=== PATIENT | male | born 1955 | race Caucasian/White ===

== ENCOUNTER 2018-11-23 21:18 | Emergency (ER) | payer BC, OTHER ==
[~2018-11-23] VITALS: Ht 172.7 cm; Wt 95.0 kg
--- OUTSIDE RECORDS SUMMARY | 2018-11-23 21:21 | XMS REPORT | Summary of Care ---
Author Author [facility] Outpatient Imaging [facility] Outpatient [facility] [place] Address Unknown Phone Unavailable Encounter HQ Encntr_alias(FIN) [id number] Date(s): 11/15/15 - 11/15/15 [facility] Outpatient Imaging [address] [address]- [phone] Discharge Disposition: Home Attending Physician: Ashlee Youngblood DC Vital Signs No data available for this section Problem List No data available for this section Allergies, Adverse Reactions, Alerts Substance Reaction Severity Status Demerol Active Medications No data available for this section Results No data available for this section Immunizations No data available for this section Procedures No data available for this section Social History Social History Type Response Smoking Status Never smoker; Exposure to Tobacco Smoke None; Cigarette Smoking Last 365 Days No; Reg Smoking Cessation Counseling No Assessment and Plan No data available for this section
--- OUTSIDE RECORDS SUMMARY | 2018-11-23 21:21 | XMS REPORT | CCD ---
Author Author Auto Generated Organization [facility] Address Unknown Phone Unavailable Care Team Providers Care Silver Recovery Operator Name Role Phone William Donahue RP Allergies, Adverse Reactions, Alerts Substance Reaction Status Demerol Active
--- OUTSIDE RECORDS SUMMARY | 2018-11-23 21:21 | XMS REPORT | Continuity of Care Document ---
Author Author [facility] Address Unknown Phone Unavailable Problems Problem Status Onset Date Classification Date Reported Comments Source Discharge Diagnosis: Sciatica, right side 11/15/2015 11/18/2015 [facility] Discharge Diagnosis: Other intervertebral disc degeneration, lumbar region 11/15/2015 11/18/2015 [facility] M51.26 - OTHER INTERVERTEBRAL DISC DISP Active 11/15/2015 [facility] [place] RT LEG NUMBNESS Active 11/15/2015 [facility] INCOMPLETE COLONOSCOY / COLON PLYPS Active 07/11/2012 [facility] Medications Medication Details Route Status Patient Instructions Ordering Provider Order Date Source Docusate Sodium 100 MG Oral Capsule [Colace] 100 mg=1 cap, PO, BID, PRN Constipation, # 20 cap, 0 Refill(s) Active 11/15/2015 [facility] diazepam 5 mg oral tablet 1-2 tab, PO, Q8H, PRN Muscle Spasms, X 5 day, # 15 tab, 0 Refill(s) Active 11/15/2015 [facility] predniSONE 20 mg oral tablet 40 mg=2 tab, PO, Daily, X 5 day, # 10 tab, 0 Refill(s) Active 11/15/2015 [facility] Acetaminophen 300 MG / Codeine Phosphate 30 MG Oral Tablet [Tylenol with Codeine #3] 1 - 2 tab, PO, Q6H, PRN Pain, X 4 day, # 24 tab, 0 Refill(s) Active 11/15/2015 [facility] Diazepam 5 mg, Route: PO, ONCE, Dosing Weight 145.455, kg, Priority: STAT, Start date: 11/15/15 14:56:00, Stop date: 11/15/15 14:56:00 Inactive 11/15/2015 [facility] Hydromorphone 1 mg, Route: IM, ONCE, Dosing Weight 145.455, kg, Priority: STAT, Start date: 11/15/15 14:55:00, Stop date: 11/15/15 14:55:00 Inactive 11/15/2015 [facility] Dexamethasone 8 mg, Route: IM, ONCE, Dosing Weight 145.455, kg, Priority: STAT, Start date: 11/15/15 14:54:00, Stop date: 11/15/15 14:54:00 Inactive 11/15/2015 [facility] Allergies, Adverse Reactions, Alerts Substance Category Reaction Severity Reaction type Status Date Reported Comments Source Demerol Assertion Drug allergy Active [facility] Immunizations Immunization Date Given Site Status Last Updated Comments Source Results Order Name Results Value Reference Range Date Interpretation Comments Source Tibia fibula series DX Tibia fibula series DX Examination: Right Tibia fibula series DX Clinical Indication: - leg pain with fever and rash; Comparison: None AP and lateral x-ray of the right tibia and fibula demonstrates no evidence of a fracture or subluxation.. The visualized knee and ankle joints demonstrate no gross abnormalities.. There are no proximal fractures identified. No foreign bodies are visualized. IMPRESSION: 1. No acute fracture or subluxation of the right tibia or fibula is identified. 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 Sciatica pain in the right hip and leg. Comparison: None FINDINGS: 3 views of the lumbar spine show five non rib bearing lumbar vertebral segments. Mild leftward lumbosacral curvature. There are no fractures, or spondylolisthesis. Disc height loss is greatest at L3-L4 through L5-S1. The posterior elements, spinous processes are normal. The transverse processes are obscured by bowel gas. The paraspinal soft tissues are unremarkable. The visualized sacroiliac joints are unremarkable. Right upper quadrant surgical mateusz. If there is further concern or neurological abnormalities on clinical exam, MRI or CT of the lumbar spine may be performed for complete assessment. IMPRESSION: 1. Moderate spondylosis greatest at L3-L4 through L5-S1. 2. Mild leftward lumbosacral curvature. SL: [id number] 11/15/2015 - - Read by: Tristen Martinez MD Dictated Date/time: 11/15/15 14:34 Electronically Signed by: Tristen Martinez MD 11/15/15 15:11 FINAL REPORT [facility] Vital Signs Vital Sign Value Date Comments Source Systolic (mm Hg) 145 11/15/2015 [facility] Respitory Rate 20 11/15/2015 [facility] Temperature Oral (F) 98.2 F 11/15/2015 [facility] Heart Rate 78 11/15/2015 [facility] Diastolic (mm Hg) 67 11/15/2015 [facility] BMI Calculated 48.76 11/15/2015 [facility] Height 172.72 cm 11/15/2015 [facility] Heart Rate 83 11/15/2015 [facility] Systolic (mm Hg) 167 11/15/2015 [facility] Diastolic (mm Hg) 97 11/15/2015 [facility] Weight 145.455 11/15/2015 [facility] Temperature Oral (F) 97.6 F 11/15/2015 [facility] Respitory Rate 18 11/15/2015 [facility] Encounters Location Location Details Encounter Type Encounter Number Reason For Visit Attending Provider ADM Date DC Date Status Source [facility] Outpatient [id number] INCOMPLETE COLONOSCOY / COLON PLYPS ANITA DICKSON 07/11/2012 07/11/2012 Active [facility] Outpatient Imaging [place] [facility] [id number] Ashlee Youngblood 11/15/2015 11/16/2015 [facility] [id number] Marin Sandoval 11/15/2015 11/15/2015 [facility] Outpatient [id number] DEBBY PERLA 06/28/2018 Active [facility] Procedures Procedure Code Date Perfomer Comments Source
--- OUTSIDE RECORDS SUMMARY | 2018-11-23 21:21 | XMS REPORT ---
Author Author [facility] Address Unknown Phone Unavailable Care Team Providers Care Hog Ringer Name Role Phone KEREN RUFFIN Unavailable Unavailable Problems This patient has no known problems. Allergies, Adverse Reactions, Alerts This patient has no known allergies or adverse reactions. Medications This patient has no known medications. Results Test Description Test Time Test Comments Text Results Atomic Results Result Comments D-DIMER 2017-06-19 11:44:00 D-DIMER QUANTITATIVE (BEAKER) (test aknz=321) < MG/L FEU <0.50 Intended Use: The D-Dimer Assay can be used to aid in the diagnosis of Deep Vein Thrombosis (DVT) and Pulmonary Embolism Disease (PED).In patients with low pre- test probability, various studies concerning STA Liatest D-dimer test have repor jagdeep that with a cutoff value of 0.50 MG/L FEU, the Negative Predictive Value (TRANSMISSION INSPECTOR V) regarding the exclusion of thrombosis is within 95-100% range.MAGNESIUM 2017-06-19 06:21:00* Test Item Value Reference Range Comments MAGNESIUM (BEAKER) (test fuxf=299) 2.1 mg/dL 1.6-2.6 BASIC METABOLIC [id number] 06:21:00* Test Item Value Reference Range Comments SODIUM (BEAKER) (test ofdo=671) 139 meq/L 136-145 POTASSIUM (BEAKER) (test cvao=966) 3.6 meq/L 3.5-5.1 CHLORIDE (BEAKER) (test zdcc=055) 106 meq/L 98-107 CO2 (BEAKER) (test rhdx=426) 26 meq/L 22-29 BLOOD UREA NITROGEN (BEAKER) (test nbvs=744) 17 mg/dL 7-21 CREATININE (BEAKER) (test hohw=687) 1.10 mg/dL 0.57-1.25 GLUCOSE RANDOM (BEAKER) (test rzgx=528) 109 mg/dL 70-105 CALCIUM (BEAKER) (test wvyx=181) 8.5 mg/dL 8.4-10.2 EGFR (BEAKER) (test teko=2740) 68 mL/min/1.73 sq m ESTIMATED GFR IS NOT ACCURATE CREATININE CLEARANCE IN PREDICTING GLOMERULAR FILTRATION RATE. ESTIMATED GFR IS NOT APPLICABLE FOR DIALYSIS PATIENTS. LIPID [id number] 06:21:00* Test Item Value Reference Range Comments TRIGLYCERIDES (BEAKER) (test sdqx=745) 133 mg/dL CHOLESTEROL (BEAKER) (test stlr=401) 93 mg/dL HDL CHOLESTEROL (BEAKER) (test rwve=910) 25 mg/dL LDL CHOLESTEROL CALCULATED (BEAKER) (test vzlo=053) 41 mg/dL Triglyceride Reference Range: Low Risk <150 Borderline 150-199 High Risk 200-499 Very High Risk >=500Cholesterol Reference Range: Low Risk <200 Borderline 200-239 High Risk >240HDL Cholesterol Reference Range: Low Risk >=60 High Risk <40LDL Cholesterol Reference Range: Optimal <100 Near Optimal 100-129 Borderline 130-159 High 160-189 Very High >=190 HEPATIC FUNCTION [id number] 06:21:00* Test Item Value Reference Range Comments TOTAL PROTEIN (BEAKER) (test mdgp=586) 5.9 gm/dL 6.0-8.3 ALBUMIN (BEAKER) (test dsob=8664) 3.7 g/dL 3.5-5.0 BILIRUBIN TOTAL (BEAKER) (test danx=064) 0.7 mg/dL 0.2-1.2 BILIRUBIN DIRECT (BEAKER) (test uwmf=182) 0.3 mg/dL 0.1-0.5 ALKALINE PHOSPHATASE (BEAKER) (test axlg=948) 57 U/L 40-150 AST (SGOT) (BEAKER) (test jysc=068) 39 U/L 5-34 ALT (SGPT) (BEAKER) (test jpdh=930) 46 U/L 6-55 [id number] 06:20:00* Test Item Value Reference Range Comments PHOSPHORUS (BEAKER) (test vqsj=631) 2.9 mg/dL 2.3-4.7 HEMOGLOBIN [id number] 20:32:00* Test Item Value Reference Range Comments HEMOGLOBIN A1C (BEAKER) (test jmvp=720) 7.1 % 4.3-6.1 TROPONIN [id number] 14:15:00* Test Item Value Reference Range Comments TROPONIN I (BEAKER) (test jdea=763) 0.02 ng/mL 0.00-0.03 Troponin I (TnI) levels must be interpreted in the context of the presenting sym ptoms and the clinical findings. Elevated TnI levels indicate myocardial damage, but are not specific for ischemic heart disease. Elevated TnI levels are seen in patients with other cardiac conditions (including myocarditis and congestive h eart failure), and slight TnI elevations occur in patients with other conditions , including sepsis, renal failure, acidosis, acute neurological disease, and per sistent tachyarrhythmia.CREATINE KINASE (CK), TOTAL AND [id number] 07:11:00* Test Item Value Reference Range Comments CREATINE KINASE TOTAL (BEAKER) (test mmhe=779) 431 U/L 29-200 CREATINE KINASE-MB (BEAKER) (test thoq=322) 13.3 ng/mL 0.0-6.6 CREATINE KINASE-MB INDEX (BEAKER) (test rzgt=021) 3.1 % CK-MB Reference Range:<6.7 Normal6.7-10.0 Borderline>10.0 Abnormal TROPONIN [id number] 07:11:00* Test Item Value Reference Range Comments TROPONIN I (BEAKER) (test ksal=542) < ng/mL 0.00-0.03 Troponin I (TnI) levels must be interpreted in the context of the presenting sym ptoms and the clinical findings. Elevated TnI levels indicate myocardial damage, but are not specific for ischemic heart disease. Elevated TnI levels are seen in patients with other cardiac conditions (including myocarditis and congestive h eart failure), and slight TnI elevations occur in patients with other conditions , including sepsis, renal failure, acidosis, acute neurological disease, and per sistent tachyarrhythmia.TROPONIN [id number] 22:52:00* Test Item Value Reference Range Comments TROPONIN I (BEAKER) (test yhep=907) 0.01 ng/mL 0.00-0.03 Troponin I (TnI) levels must be interpreted in the context of the presenting sym ptoms and the clinical findings. Elevated TnI levels indicate myocardial damage, but are not specific for ischemic heart disease. Elevated TnI levels are seen in patients with other cardiac conditions (including myocarditis and congestive h eart failure), and slight TnI elevations occur in patients with other conditions , including sepsis, renal failure, acidosis, acute neurological disease, and per sistent tachyarrhythmia.B-TYPE NATRIURETIC FACTOR (BNP)2017-06-17 17:07:00* Test Item Value Reference Range Comments B-TYPE NATRIURETIC PEPTIDE (BEAKER) (test rsqh=395) 82 pg/mL 0-100 CREATINE KINASE (CK), TOTAL AND [id number] 17:07:00* Test Item Value Reference Range Comments CREATINE KINASE TOTAL (BEAKER) (test dolx=151) 470 U/L 29-200 CREATINE KINASE-MB (BEAKER) (test wwae=231) 16.2 ng/mL 0.0-6.6 CREATINE KINASE-MB INDEX (BEAKER) (test yesq=520) 3.4 % CK-MB Reference Range:<6.7 Normal6.7-10.0 Borderline>10.0 Abnormal TROPONIN [id number] 17:07:00* Test Item Value Reference Range Comments TROPONIN I (BEAKER) (test lvsk=153) < ng/mL 0.00-0.03 Troponin I (TnI) levels must be interpreted in the context of the presenting sym ptoms and the clinical findings. Elevated TnI levels indicate myocardial damage, but are not specific for ischemic heart disease. Elevated TnI levels are seen in patients with other cardiac conditions (including myocarditis and congestive h eart failure), and slight TnI elevations occur in patients with other conditions , including sepsis, renal failure, acidosis, acute neurological disease, and per sistent tachyarrhythmia.[id number] 17:00:00* Test Item Value Reference Range Comments MAGNESIUM (BEAKER) (test lfqn=658) 2.1 mg/dL 1.6-2.6 BASIC METABOLIC [id number] 17:00:00* Test Item Value Reference Range Comments SODIUM (BEAKER) (test bcpl=664) 138 meq/L 136-145 POTASSIUM (BEAKER) (test iqpp=988) 3.7 meq/L 3.5-5.1 CHLORIDE (BEAKER) (test nohw=255) 104 meq/L 98-107 CO2 (BEAKER) (test army=130) 27 meq/L 22-29 BLOOD UREA NITROGEN (BEAKER) (test snqg=118) 21 mg/dL 7-21 CREATININE (BEAKER) (test sxdp=669) 1.34 mg/dL 0.57-1.25 GLUCOSE RANDOM (BEAKER) (test tkfn=079) 190 mg/dL 70-105 CALCIUM (BEAKER) (test vnpa=522) 9.1 mg/dL 8.4-10.2 EGFR (BEAKER) (test cnti=8877) 54 mL/min/1.73 sq m ESTIMATED GFR IS NOT ACCURATE CREATININE CLEARANCE IN PREDICTING GLOMERULAR FILTRATION RATE. ESTIMATED GFR IS NOT APPLICABLE FOR DIALYSIS PATIENTS. PT/[id number] 16:38:00* Test Item Value Reference Range Comments PROTIME (BEAKER) (test ycbj=849) 13.2 seconds 11.7-14.7 INR (BEAKER) (test rutj=920) 1.0 <=5.9 PARTIAL THROMBOPLASTIN TIME (BEAKER) (test qduk=728) 25.1 seconds 22.5-36.0 RECOMMENDED COUMADIN/WARFARIN INR THERAPY RANGESSTANDARD DOSE: 2.0 - 3.0 Inclu jesus manuel: PROPHYLAXIS for venous thrombosis, systemic embolization; TREATMENT for reva ous thrombosis and/or pulmonary embolus.HIGH RISK: Target INR is 2.5-3.5 for pat ients with mechanical heart valves.RAD, CHEST, 1 VIEW, NON [id number] 16:33:00Reason for exam:->CPFINAL REPORT Chest, AP view. History: Chest pain. Comparison: 11/22/2015. Discussion: Mild cardiomegaly similar to previous. The lungs are clear without evidence of consolidation or effusion. There are no acute osseous abnormalities. The soft tissues are unremarkable. The left hemidiaphragm is elevated. IMPRESSION: No acute cardiopulmonary abnormality. Signed: Kyle Apple MDReport Verified Date/Time: 06/17/2017 16:33:58 Reading Location: [facility] Mammo Reading Room W/PLT COUNT & AUTO [id number] 16:30:00* Test Item Value Reference Range Comments WHITE BLOOD CELL COUNT (RYLEE) (test sidk=515) 5.9 K/ L 3.5-10.5 RED BLOOD CELL COUNT (BEAKER) (test llrd=379) 4.96 M/ L 4.63-6.08 HEMOGLOBIN (BEAKER) (test kxtw=568) 14.5 GM/DL 13.7-17.5 HEMATOCRIT (BEAKER) (test wioy=552) 44.8 % 40.1-51.0 MEAN CORPUSCULAR VOLUME (BEAKER) (test derw=480) 90.3 fL 79.0-92.2 MEAN CORPUSCULAR HEMOGLOBIN (BEAKER) (test jnli=308) 29.2 pg 25.7-32.2 MEAN CORPUSCULAR HEMOGLOBIN CONC (BEAKER) (test jcsd=901) 32.4 GM/DL 32.3-36.5 RED CELL DISTRIBUTION WIDTH (BEAKER) (test hpdw=525) 14.5 % 11.6-14.4 PLATELET COUNT (BEAKER) (test teqr=148) 197 K/CU MM 150-450 MEAN PLATELET VOLUME (BEAKER) (test vtua=311) 10.4 fL 9.4-12.4 NUCLEATED RED BLOOD CELLS (BEAKER) (test nwsn=686) 0 /100 WBC 0-0 NEUTROPHILS RELATIVE PERCENT (BEAKER) (test kzjn=875) 57 % LYMPHOCYTES RELATIVE PERCENT (BEAKER) (test tjzm=374) 29 % MONOCYTES RELATIVE PERCENT (BEAKER) (test hqxv=115) 9 % EOSINOPHILS RELATIVE PERCENT (BEAKER) (test jtdm=545) 3 % BASOPHILS RELATIVE PERCENT (BEAKER) (test uxnf=992) 1 % NEUTROPHILS ABSOLUTE COUNT (BEAKER) (test gsyx=973) 3.35 K/ L 1.78-5.38 LYMPHOCYTES ABSOLUTE COUNT (BEAKER) (test hqwb=675) 1.74 K/ L 1.32-3.57 MONOCYTES ABSOLUTE COUNT (BEAKER) (test rblc=178) 0.54 K/ L 0.30-0.82 EOSINOPHILS ABSOLUTE COUNT (BEAKER) (test rcej=876) 0.20 K/ L 0.04-0.54 BASOPHILS ABSOLUTE COUNT (BEAKER) (test kijp=944) 0.05 K/ L 0.01-0.08 IMMATURE GRANULOCYTES-RELATIVE PERCENT (BEAKER) (test xqql=8191) 1 % 0-1
--- OUTSIDE RECORDS SUMMARY | 2018-11-23 21:21 | XMS REPORT | Summary of Care ---
Author Author [facility] Organization [facility] Address Unknown Phone Unavailable Encounter SHASTA Lai(RONNA) [id number] Date(s): 11/15/15 - 11/15/15 [facility] [address] [place] [address]- Discharge Diagnosis: Sciatica, right side Discharge Diagnosis: Other intervertebral disc degeneration, lumbar region Discharge Disposition: Home Attending Physician: Marin Sandoval MD Vital Signs Most recent to 1 2 oldest [Reference Range]: Height 172.72 cm (11/15/15 1:03 PM) Temperature Oral 98.2 DegF 97.6 DegF [96.4-99.1 DegF] (11/15/15 3:56 PM) (11/15/15 1:03 PM) Blood Pressure 167/97 mmHg [90-140/60-90 mmHg] *HI* (11/15/15 1:03 PM) Systolic Blood 145 mmHg Pressure [90-140 *HI* mmHg] (11/15/15 3:56 PM) Diastolic Blood 67 mmHg Pressure [60-90 (11/15/15 3:56 PM) mmHg] Respiratory Rate 20 BRMIN 18 BRMIN [14-20 BRMIN] (11/15/15 3:56 PM) (11/15/15 1:03 PM) Peripheral Pulse 78 bpm 83 bpm Rate [60-100 bpm] (11/15/15 3:56 PM) (11/15/15 1:03 PM) Weight 145.455 kg (11/15/15 1:03 PM) Body Mass Index 48.76 m2 (11/15/15 1:03 PM) Problem List No data available for this section Allergies, Adverse Reactions, Alerts Substance Reaction Severity Status Demerol Active Medications Colace 100 mg oral capsule 100 mg=1 cap, PO, BID, PRN Constipation, # 20 cap, 0 Refill(s) Start Date: 11/15/15 Status: Ordered dexamethasone 8 mg, Route: IM, ONCE, Dosing Weight 145.455, kg, Priority: STAT, Start date: 14:54:00, Stop date: 11/15/15 14:54:00 Start Date: 11/15/15 Stop Date: 11/15/15 Status: Completed diazepam 5 mg, Route: PO, ONCE, Dosing Weight 145.455, kg, Priority: STAT, Start date: 14:56:00, Stop date: 11/15/15 14:56:00 Start Date: 11/15/15 Stop Date: 11/15/15 Status: Completed diazepam 5 mg oral tablet 1-2 tab, PO, Q8H, PRN Muscle Spasms, X 5 day, # 15 tab, 0 Refill(s) Start Date: 11/15/15 Stop Date: 11/20/15 Status: Ordered hydromorphone 1 mg, Route: IM, ONCE, Dosing Weight 145.455, kg, Priority: STAT, Start date: 14:55:00, Stop date: 11/15/15 14:55:00 Start Date: 11/15/15 Stop Date: 11/15/15 Status: Completed predniSONE 20 mg oral tablet 40 mg=2 tab, PO, Daily, X 5 day, # 10 tab, 0 Refill(s) Start Date: 11/15/15 Stop Date: 11/20/15 Status: Ordered Tylenol with Codeine #3 oral tablet 1 - 2 tab, PO, Q6H, PRN Pain, X 4 day, # 24 tab, 0 Refill(s) Start Date: 11/15/15 Stop Date: 11/19/15 Status: Ordered Results No data available for this section Immunizations No data available for this section Procedures No data available for this section Social History Social History Type Response Smoking Status Never smoker; Exposure to Tobacco Smoke None; Cigarette Smoking Last 365 Days No; Reg Smoking Cessation Counseling No Assessment and Plan No data available for this section
--- OUTSIDE RECORDS SUMMARY | 2018-11-23 21:21 | XMS REPORT | Clinical Summary ---
Author [facility] Address Unknown Phone Unavailable Care Team Providers Care Screen Printing Supervisor Name Role Phone Raymond Ashley MD PCP Unavailable Allergies Comments Active Allergy Reactions Severity Noted Date Other reaction(s): Hallucinations Violent physical reaction;hallucination Violent physical reaction;hallucination Meperidine 08/17/2015 Medications End Date Status Medication Sig Dispensed Refills Start Date Active saw palmetto 320 mg Cap Take 2 0 capsules by mouth. Active hydroCHLOROthiazide Take 25 mg by 0 (HYDRODIURIL) 25 MG mouth daily. tablet Active multivitamin capsule Take 1 0 capsule by mouth daily. Active gabapentin (NEURONTIN) Take 900 mg 0 600 MG tablet by mouth daily . Active testosterone daily. 0 capsule/cream (compounded) Active pantoprazole (PROTONIX) Take 1 tablet 90 tablet 3 40 MG tablet (40 mg total) 7 by mouth daily. Active FLUoxetine (PROZAC) 20 MG Take 20 mg by 0 tablet mouth daily. Active solifenacin (VESICARE) 10 Take 5 mg by 0 MG tablet mouth daily. Active aspirin 81 MG chewable Take 81 mg by 0 tablet mouth daily. Active metoprolol (TOPROL-XL) 25 Take 25 mg by 0 MG 24 hr tablet mouth daily. Active rosuvastatin (CRESTOR) 20 Take 20 mg by 0 MG tablet mouth daily. Active doxycycline (VIBRAMYCIN) Take 100 mg 0 100 MG capsule by mouth 2 (two) times daily. Active plecanatide (TRULANCE) 3 Take 3 mg by 0 mg Tab mouth daily. Active tamsulosin (FLOMAX) 0.4 Take 0.4 mg 0 mg Cp24 24 hr capsule by mouth daily. Active zinc gluconate 50 mg Take 50 mg by 0 tablet mouth daily. Active B-complex with vitamin C Take 1 tablet 0 tablet by mouth daily. Active magnesium oxide (MAG-OX) Take 400 mg 0 400 mg tablet by mouth daily. Active cholecalciferol, vitamin Take 5,000 0 D3, 5,000 unit Tab Units by mouth daily. Active coenzyme Q10 10 mg Take 10 mg by 0 capsule mouth daily. Active lisinopril Take 1 tablet 30 tablet 0 (PRINIVIL,ZESTRIL) 5 MG (5 mg total) 7 tablet by mouth daily. 06/19/2018 nitroglycerin (NITROSTAT) Put 1 pill 90 tablet 0 0.4 MG SL tablet under tongue 7 every 5min as needed for chest pain.No more than 3 doses in 15min. Active Problems Problem Noted Date Chest pain, unspecified type 06/17/2017 Lumbar disc herniation 11/23/2015 Myelopathy of lumbar region 11/23/2015 Social History Date Tobacco Use Types Packs/Day Years Used Never Smoker Smokeless Tobacco: Never Used Alcohol Use Drinks/Week oz/Week Comments Yes occ 1/WK Sex Assigned at Date Recorded Not on file Industry Job Start Date Occupation Not on file Not on file Not on file Travel End Travel History Travel Start No recent travel history available. Last Filed Vital Signs Not on file Plan of Treatment Not on file Implants Device Identifier Shelf Expiration Date Model / Serial / Lot Implanted Type Area Manufactur er 02/27/2018 [id number] / / [id number] Device Clsr Angio-Seal Vip 6fr Cardiovasc Right: Groin ST ERIKA [id number] - [id number] ular MED:CARDIA Implanted: Qty: 1 on 06/18/2017 by Amy Virgen MD 03/29/2018 [id number] / / [id number] Matrix Floseal Hemo W/O Ndl 10 Cement/Ronald Right: Spine HANNON:BIO [id number] - [id number] ler/Adhesi Lumbar SCI Implanted: Qty: 1 on 11/23/2015 by Dawit Chisholm MD 02/27/2021 [id number] / [id number] / [id number] Intubation [facility] - Ophthalmol Left: Eye LONG-TERM [id number] ogy OPTHALMICS Implanted: Qty: 1 on 02/22/2017 by Thai Márquez MD 12/29/2019 [id number] / / [id number] Castro Bicanaliculus Intubation Right: Eye LONG-TERM Implanted: Qty: 1 on 12/28/2016 by OPHTHALMIC Thai Márquez MD S Results Not on fileafter 11/22/2017 Insurance Payer Benefit Subscriber ID Type Phone Address Plan / Group BLUE [employer] OS xxxxxxxxxxxx PPO [phone] [address] POS/PPO/[place] [address] O Advance Directives Patient has advance care planning documents, and code status on file. For more i nformation, please contact: [facility] [address] [place] [address] Date Inactivated Comments Code Status Date Activated 06/19/2017 3:26 PM Full Code 06/18/2017 5:09 AM This code status was determined by: Patient 11/23/2015 1:53 PM Full Code 11/23/2015 6:48 AM This code status was determined by: Patient
[2018-11-23] MEDS ORDERED: KETOROLAC TROMETHAMINE 60 MG/2 ML VIAL IM ONE (22:30)
[2018-11-23] MEDS ORDERED: HYDROCODONE/APAP 5MG-325MG TAB PO ONE (22:30)
[2018-11-24 04:11] VITALS: BP 163/80
== END 2018-11-23 23:00 | disposition home or self-care (01) ==
LOC: FSED 21:18
DX: H66.001 Acute suppurative otitis media without spontaneous rupture of ear drum, right ear (principal); R50.9 Fever, unspecified; R05 Cough; I10 Essential (primary) hypertension; E11.9 Type 2 diabetes mellitus without complications
CPT/HCPCS: 96372